=== PATIENT | male | born 1955 | race Caucasian/White ===

== ENCOUNTER 2025-02-02 11:09 | Outpatient (AMB) | payer MEDICARE, BC, SELFPAY | END 2025-02-02 11:15 | disposition home or self-care (01) | LOC: HO.HMGAL 11:09 | PROVIDERS: PCP Internal Medicine; Visit Provider Registered Nurse Emergency | DX: J30.89 Other allergic rhinitis (principal) | CPT/HCPCS: 95117; 95165 ==

== ENCOUNTER 2025-03-09 11:03 | Outpatient (AMB) | payer MEDICARE, BC, SELFPAY | END 2025-03-09 11:31 | disposition home or self-care (01) | LOC: HO.HMGAL 11:03 | PROVIDERS: PCP Internal Medicine; Visit Provider Registered Nurse Emergency | DX: J30.89 Other allergic rhinitis (principal) | CPT/HCPCS: 95117; 95165 ==

== ENCOUNTER 2025-04-06 11:22 | Outpatient (AMB) | payer MEDICARE, BC, SELFPAY | END 2025-04-06 11:22 | disposition home or self-care (01) | LOC: HO.HMGAL 11:22 | PROVIDERS: PCP Internal Medicine; Visit Provider Registered Nurse Emergency | DX: J30.89 Other allergic rhinitis (principal) | CPT/HCPCS: 95117; 95165 ==

== ENCOUNTER 2025-05-04 11:03 | Outpatient (AMB) | payer MEDICARE, BC, SELFPAY | END 2025-05-04 11:04 | disposition home or self-care (01) | LOC: HO.HMGAL 11:03 | PROVIDERS: PCP Internal Medicine; Visit Provider Registered Nurse Emergency | DX: J30.89 Other allergic rhinitis (principal) | CPT/HCPCS: 95117; 95165 ==

== ENCOUNTER 2025-06-01 09:52 | Outpatient (AMB) | payer MEDICARE, BC, SELFPAY | END 2025-06-01 09:55 | disposition home or self-care (01) | LOC: HO.HMGAL 09:52 | PROVIDERS: PCP Internal Medicine; Visit Provider Registered Nurse Emergency | DX: J30.89 Other allergic rhinitis (principal) | CPT/HCPCS: 95117; 95165 ==